=== PATIENT | female | born 1955 | race Caucasian/White ===

== ENCOUNTER → 2020-09-28 14:37 | Outpatient (BNVA) | payer MEDICARE, MEDICAID, SELFPAY | PROVIDERS: Visit Provider Psychiatry & Neurology Psychiatry | DX: F79 Unspecified intellectual disabilities; F25.0 Schizoaffective disorder, bipolar type | CPT/HCPCS: 90792 ==

== ENCOUNTER → 2021-12-11 15:25 | Outpatient (BNVA) | payer MEDICARE, MEDICAID, SELFPAY | PROVIDERS: PCP Physician Assistant Medical; Visit Provider Psychiatry & Neurology Psychiatry | DX: Z79.899 Other long term (current) drug therapy (principal) | CPT/HCPCS: 80053; 80061; 83036; 84443 ==

== ENCOUNTER → 2022-10-31 11:13 | Outpatient (BNVA) | payer MEDICARE, MEDICAID, SELFPAY | PROVIDERS: PCP Physician Assistant Medical; Visit Provider Psychiatry & Neurology Psychiatry | DX: Z79.899 Other long term (current) drug therapy (principal); F25.0 Schizoaffective disorder, bipolar type; F20.9 Schizophrenia, unspecified; F79 Unspecified intellectual disabilities; F17.210 Nicotine dependence, cigarettes, uncomplicated | CPT/HCPCS: 80053; 80061; 83036; 84443; 85025 ==

== ENCOUNTER 2022-11-02 13:30 | Outpatient (CLI) | payer MEDICARE, MEDICAID, SELFPAY ==
--- NOTE | 2022-11-02 13:45 | USCV_ITS ---
Brandi Can Age: 67 Gender: F : 1955 Exam Date: 11/02/2022 14:20 Ordering Phys: Marcela Martini Technologist: Exam Location: [facility] [place] Indication: murmur BP: 140 / 79 HR: 68 Rhythm: Sinus Technical Quality: Adequate MEASUREMENTS (Male / Female) Normal Values 2D ECHO LV Diastolic Diameter PLAX 3.3 cm 4.2 - 5.9 / 3.9 - 5.3 cm LV Systolic Diameter PLAX 2.3 cm IVS Diastolic Thickness 1.3 cm 0.6 - 1.0 / 0.6 - 0.9 cm IVS Systolic Thickness 1.7 cm LVPW Diastolic Thickness 1.6 cm 0.6 - 1.0 / 0.6 - 0.9 cm LVPW Systolic Thickness 1.5 cm LVOT Diameter 2.0 cm LV Ejection Fraction 2D Teich 43.0 % LV Ejection Fraction MOD 2C 63.8 % LV Ejection Fraction 2C AL 63.1 % LA Diameter 3.9 cm Aorta at Sinotubular Diameter 1.9 cm IVC Diameter 1.6 cm M-MODE Aortic Annulus Diameter 3.0 cm LA Ao Ratio MM 1.4 MV E Point Septal Separation 0.6 cm DOPPLER AV Peak Velocity 385.5 cm/s MV Area PHT 2.4 cm squared Mitral E to A Ratio 1.0 MV E' Velocity 77.5 cm/s Mitral E to MV E' Ratio 24.1 Mitral E to LV E' Lateral Ratio 18.9 Mitral E to LV E' Septal Ratio 33.4 TR Peak Velocity 331.0 cm/s TR Peak Gradient 43.8 mmHg TV Peak E Velocity 139.0 cm/s Right Atrial Pressure 3.0 mmHg Pulmonary Artery Systolic Pressu 46.8 mmHg RV Acceleration Time 0.1 s FINDINGS Left Ventricle Normal left ventricular size and systolic function, EF 63 %. Mild to moderate concentric left ventricular hypertrophy.no regional wall motion abnormalities. Grade II/IV diastolic dysfunction, moderately elevated filling pressures. Right Ventricle The right ventricle is normal in size and function. Right Atrium The right atrium is normal in size. Left Atrium Mildly increased left atrial size. Mitral Valve Thickened mitral valve. Moderate mitral annular calcification. Aortic Valve The peak velocity aortic valve 4.62 m/s with a peak gradient of 85 and a mean gradient of 46 mmHg The aortic valve area was calculated to be 0.75 cm squared with an index of 0.45 Tricuspid Valve Trace tricuspid valve regurgitation. Pulmonic Valve Thickened pulmonic valve. Pericardium No pericardial effusion. Aorta Normal ascending aorta dimension. IVC Normal inferior vena cava. CONCLUSIONS Severe aortic valve stenosis with a valve area of 0.75 cm squared with a valve index of 0.45 The peak velocity aortic valve 4.62 m/s with a peak gradient of 85 and a mean gradient of 46 mmHg Normal left ventricular size and systolic function, EF 63 %. Mild to moderate concentric left ventricular hypertrophy. No regional wall motion abnormalities. Mildly increased left atrial size. Thickened mitral valve. Moderate mitral annular calcification. Trace tricuspid valve regurgitation. Mild pulmonary hypertension with an estimated pulmonary artery peak systolic pressure of 47 mmHg. There is no pericardial effusion. There are no intracardiac masses. No similar previous studies are available for comparison Dr Clinton Ling MD FAC (Electronically Signed) Final Date: 03 November 2022 08:25 S
== END 2022-11-02 13:31 | disposition home or self-care (01) ==
PROVIDERS: Visit Provider Nurse Practitioner Family
DX: R01.1 Cardiac murmur, unspecified (principal); I08.1 Rheumatic disorders of both mitral and tricuspid valves; I27.20 Pulmonary hypertension, unspecified
CPT/HCPCS: 93306

== ENCOUNTER 2022-11-17 09:14 | Emergency (ER) | payer MEDICARE, MEDICAID, SELFPAY ==
[2022-11-17 09:17] VITALS: BP 93/73; PULSE 84; RESP 14; TEMP 37.1; O2SAT 90; BMI 35.9
--- NOTE | 2022-11-17 09:25 | XRR_ITS ---
PROCEDURE INFORMATION: Exam: XR Lumbosacral Spine Exam date and time: 11/17/2022 9:38 AM Age: 67 years old Clinical indication: Low back pain; Patient HX: Low back and neck pain. PT reports that she was lifting a laundry basket on 11/13/22 when the pain began. - TECHNIQUE: Imaging protocol: Radiologic exam of the lumbosacral spine. Views: 2 or 3 views. COMPARISON: No relevant prior studies available. FINDINGS: Bones/joints: The lumbar spine maintains a normal lordotic curvature. No spondylolisthesis identified. Approximately 25-50% height loss of the L5 vertebral body. No comparison available. The intervertebral discs maintain normal height. Mild multilevel facet arthropathy. Soft tissues: Unremarkable. XR/XR lumbar spine 2-3V* [id number] IMPRESSION: Approximately 25-50% height loss of the L5 vertebral body. No comparison available. Correlate with any focal pain in this region. Consider MRI for further evaluation.
--- NOTE | 2022-11-17 09:25 | XRR_ITS ---
PROCEDURE INFORMATION: Exam: XR Cervical Spine Exam date and time: 11/17/2022 9:38 AM Age: 67 years old Clinical indication: Patient HX: Low back and neck pain. PT reports that she was lifting a laundry basket on 11/13/22 when the pain began. - TECHNIQUE: Imaging protocol: Radiologic exam of the cervical spine. Views: 2 or 3 views. COMPARISON: No relevant prior studies available. FINDINGS: Bones/joints: The cervical spine maintains a normal lordotic curvature. No spondylolisthesis identified. C1 and C2 maintain normal alignment. The base of the odontoid is unremarkable. The vertebral bodies maintain normal height. Mild multilevel loss of intervertebral disc height with endplate degenerative changes in the mid to lower cervical spine. Mild multilevel facet arthropathy. Soft tissues: Unremarkable. XR/XR cervical spine 3V* [id number] IMPRESSION: 1. No vertebral body height loss or traumatic malalignment identified. 2. Mild multilevel degenerative changes.
--- NOTE | 2022-11-17 09:34 | W.ED.BACK ---
HPI - Back Pain/Injury General: Chief Complaint: Back Pain/Injury Stated Complaint: NECK AND BACK PAIN Time Seen by Provider: 11/17/22 09:21 History of Present Illness: Patient presents to the ER via EMS with complaints of low back pain and neck pain. Patient states several days ago she she was lifting a laundry basket and reports when this is when the pain began. Patient reports pain is 8 out of 10 but she is sitting in no acute distress comfortably appearing talking in complete sentences. MD elicited complaint: back pain and back injury Pertinent past history: recent trauma Onset (ago): day(s) (Several days ago) Timing: constant Severity: moderate Quality: burning and aching Location: lumbar spine Exacerbating factors: movement Relieving factors: none Context: while lifting Associated symptoms: Reports nausea; Deny abdominal pain, chills, dysuria or fever(s) Work related injury: No Review of Systems General: Reports: 10 or more systems reviewed and unremarkable except in HPI and below Const: Denies: fever(s) or chills Eyes: Denies: change in vision ENMT: Denies: throat pain or odynophagia Card: Denies: chest pain, palpitations or irregular heart rhythm Resp: Denies: dyspnea, productive cough or non-productive cough GI: Reports: nausea; Denies: abdominal pain : Denies: flank pain or dysuria Musc: Reports: neck pain and back pain Skin/Breast: Denies: rash or pruritus Neuro: Denies: headache(s), numbness in extremities or weakness in extremities Psych: Denies: anxiety, depression or mood swings Endo: Denies: polyuria or polydipsia Russell/Lymph: Denies: easy bruising or easy bleeding All/Imm: Denies: urticaria or throat swelling PFSH ED PFSH: Medical History Intellectual disability Mood disorder Psychiatric care Schizophrenia Surgical History S/P cholecystectomy Family History Brother CAD (coronary artery disease) Myocardial infarction FH: CABG (coronary artery bypass surgery) Denies family history of Diabetes Stroke Social History Smoking and tobacco status: current every day smoker Alcohol intake: never Caregiver/support person: Yes Lives independently: No Physical Exam Const: COMMON NORMALS: no acute distress, average body habitus, patient oriented x3, no limitations, healthy appearing, alert and well nourished HENMT: COMMON NORMALS: normocephalic, atraumatic, hearing grossly normal bilaterally, external ears normal, Normal external nose present and moist oral mucous membranes HEAD & SCALP: normocephalic and atraumatic NOSE: Normal external nose present EXTERNAL EAR: Yes external ears normal Eye: COMMON NORMALS: Equal, round and reactive pupils present, EOMs intact bilaterally, conjunctivae normal and no scleral icterus CONJUNCTIVA: Yes conjunctivae normal PUPIL: Yes Equal, round and reactive pupils present Neck/C-Spine: COMMON NORMALS: full ROM, no lymphadenopathy, supple, no meningeal signs and no JVD Lymph: LYMPHATIC: no lymphadenopathy noted Chest: COMMONS NORMALS: normal inspection of the chest and normal palpation of entire chest wall Resp: COMMON NORMALS: normal respiratory effort, No retractions, No use of accessory muscles and clear to auscultation bilaterally AUSCULTATION: clear to auscultation bilaterally Cardio: COMMON NORMALS: no JVD, regular rate, regular rhythm, S1 normal heart sound present and S2 normal heart sound present RATE: regular rate RHYTHM: regular rhythm HEART SOUNDS: S1 normal heart sound present and S2 normal heart sound present GI: COMMON NORMALS: Normal to inspection, nondistended, normoactive bowel sounds present, Soft to palpation, non-tender, No hepatosplenomegaly present and no masses PALPATION: Yes Soft to palpation and Yes No hepatosplenomegaly present : COMMON NORMALS: Yes no CVA tenderness BLADDER/KIDNEY EXAM: Yes no CVA tenderness Back/Pelvis: COMMON NORMALS: no CVA tenderness, thoracic and lumbar spine normal to inspection and no thoracic nor lumbar tenderness Extremity: NARRATIVE EXTREMITY EXAM: Trace bilateral lower extremity pitting edema Neuro: COMMON NORMALS: patient oriented x3 SENSORIUM/ORIENTATION: Yes alert MENINGEAL SIGNS: Yes no meningeal signs Course Vital Signs: Vital signs: Vital Signs Temperature 98.7 F 11/17/22 09:17 Pulse Rate 79 11/17/22 09:37 Respiratory Rate 14 11/17/22 09:37 Blood Pressure 113/43 11/17/22 09:37 Pulse Oximetry 94 11/17/22 09:37 Oxygen Delivery Me thod Room Air 11/17/22 09:37 MDM - Back Pain/Injury Medical Decision Making Patient presents to the ER with complaints of neck and back pain since lifting a laundry basket approximately 4 days ago. Patient appears in no acute distress during her entire stay in the ER. X-rays were obtained of her cervical and lumbar spine. Cervical spine showed multilevel degenerative changes otherwise benign, images of her lumbar spine showed possible L5 vertebral body compression fracture with approximate 25 to 50% height of loss, no comparison views. Patient does state with palpation of this area she is more tender than other areas of her back however clinically she does not appear to be very tender at all. These findings were explained to the patient as well as the possible need for follow-up and/or intervention. Patient will be discharged home on pain medicine and is to follow-up with her family doctor within the next week. Differential Diagnosis Likely lumbar radiculopathy and strain of lumbar region; Unlikely sciatica, renal colic, pyelonephritis, thoracic back pain, AAA or discitis Medical Records I reviewed the patient's medical records. Labs I reviewed the patient's lab results. Radiology Impressions Cervical Spine X-Ray 11/17/22 09:25 IMPRESSION: 1. No vertebral body height loss or traumatic malalignment identified. 2. Mild multilevel degenerative changes. Lumbar Spine X-Ray 11/17/22 09:25 IMPRESSION: Approximately 25-50% height loss of the L5 vertebral body. No comparison available. Correlate with any focal pain in this region. Consider MRI for further evaluation. Discharge Plan Discharge Patient Disposition: Home Clinical Impression: Closed compression fracture of L5 vertebra, Low back pain, Acute neck pain Condition: Stable Prescriptions: New meloxicam 15 mg tablet 15 mg PO DAILY Qty: 14 0RF No Action oxybutynin chloride 10 mg tablet extended release 24hr 10 mg PO DAILY omeprazole 40 mg capsule,delayed release(DR/EC) 40 mg PO DAILY atorvastatin 40 mg tablet 40 mg PO DAILY multivitamin Tablet 1 tab PO DAILY quetiapine 100 mg tablet 100 mg PO BEDTIME Discharge Orders: Discharge ED (Routine); Ordered 11/17/22 Ordered By: George Gonzales Discharge Activity: Increase activity as tolerated Patient Instructions: Pain Management, Vertebral Compression Fracture (ED), Back Pain (ED) Coding Level of Care Code ED Motorized Squad Lieutenant for Arlen Marion
[2022-11-17 09:37] VITALS: BP 113/43; PULSE 79; RESP 14; O2SAT 94
[2022-11-17] MEDS: ketorolac 60 mg/2 mL INJ IM (12:23)
--- NOTE | 2022-11-21 15:31 | DCPLANNER ---
TCM called patient due to no primary care physician - no answer at this time.
== END 2022-11-17 12:33 | disposition home or self-care (01) ==
PROVIDERS: Emergency Provider Emergency Medicine
DX: S32.050A Wedge compression fracture of fifth lumbar vertebra, initial encounter for closed fracture (principal); M54.2 Cervicalgia; F17.210 Nicotine dependence, cigarettes, uncomplicated; X50.0XXA Overexertion from strenuous movement or load, initial encounter
CPT/HCPCS: 72040; 72100; 96372; 99284; J1885

== ENCOUNTER → 2023-01-15 14:21 | Outpatient (BNVA) | payer MEDICARE, MEDICAID, SELFPAY | PROVIDERS: PCP Family Medicine; Visit Provider Nurse Practitioner Family | DX: M25.561 Pain in right knee (principal) | CPT/HCPCS: 73562 ==

== ENCOUNTER → 2023-11-07 14:54 | Outpatient (BNVA) | payer MEDICARE, MEDICAID, SELFPAY | PROVIDERS: PCP Family Medicine; Visit Provider Orthopaedic Surgery | DX: M54.9 Dorsalgia, unspecified (principal); S32.040A Wedge compression fracture of fourth lumbar vertebra, initial encounter for closed fracture; X58.XXXA Exposure to other specified factors, initial encounter | CPT/HCPCS: 72110; 99204 ==

== ENCOUNTER 2023-11-25 15:44 | Outpatient (CLI) | payer MEDICARE, MEDICAID, SELFPAY ==
--- NOTE | 2023-11-25 16:00 | MR_ITS ---
WS: [id number] MRI LUMBAR SPINE NONCONTRAST TECHNIQUE: Sagittal T1, T2 and STIR imaging. Axial T1 and T2 imaging. CLINICAL INFORMATION: Back pain COMPARISON: None. FINDINGS: Mild lumbar curve. Again seen is the compression fracture L4 vertebral body with 85% loss vertebral b anamika height more prominent centrally with near vertebral plana configuration. Preservation of the post erior superior cortex with retropulsion. This results in moderate to severe central canal stenosis at the L3-4 disc space. Minimal residual edema in the L4 vertebral body consistent with late subacute t o chronic compression. L1-L2: Mild annular bulging. Mild facet arthropathy. Mild LEFT foraminal narrowing. Spinal canal is p atent. L2-L3: Mild annular bulging. Slight effacement of the ventral thecal sac. Moderate facet arthropathy. Mild LEFT greater than RIGHT foraminal narrowing. L3-L4: Mild disc bulging in combination with retropulsion L4 results in moderate to severe central ca nal stenosis. Impingement of the traversing L4 nerve roots at this level. Moderate RIGHT and mild LEF T foraminal narrowing. Moderate facet arthropathy. L4-L5: Tiny central protrusion with slight effacement of the ventral thecal sac. Slight encroachment on traversing L5 nerve roots. Moderate facet arthropathy. Mild RIGHT and no significant LEFT foramina l narrowing. L5-S1: Mild annular bulging. Spinal canal and foramina are patent. Mild facet arthropathy. Small RIGHT renal cyst. Large cystic signal structure in the pelvis with lobulation may represent the urinary bladder versus pelvic mass. This is incompletely evaluated and recommend CT abdomen pelvis in further evaluation. In addition, adjacent similar-appearing cystic lesion in the LEFT adnexa measuring 6.5 cm. Recommend further evaluation with contrast-enhanced CT abdomen pelvis. IMPRESSION: 1. Large cystic pelvic lesion versus distended bladder in the pelvis with lobulation partially visua lized. In addition, adjacent cystic lesion measuring 6.5 cm in the LEFT adnexa is indeterminate. Jak mmend further evaluation of the structures with contrast-enhanced CT abdomen pelvis. No prior compari sons available. 2. Compression fracture L4 vertebral body with retropulsion of the posterior superior cortex results in moderate to severe central canal stenosis described above. Near vertebral plana configuration inv olving the central L4 vertebral body. 3. Mild chronic compression supreme plate L5. 4. Moderate RIGHT L3-4 and mild RIGHT L4-5 foraminal narrowing.
== END 2023-11-25 15:45 | disposition home or self-care (01) ==
LOC: RAD 15:46
PROVIDERS: PCP Family Medicine; Visit Provider Orthopaedic Surgery
DX: M54.50 Low back pain, unspecified (principal); M48.56XA Collapsed vertebra, not elsewhere classified, lumbar region, initial encounter for fracture; M48.061 Spinal stenosis, lumbar region without neurogenic claudication; X58.XXXA Exposure to other specified factors, initial encounter
CPT/HCPCS: 72148

== ENCOUNTER → 2024-01-02 12:53 | Outpatient (BNVA) | payer MEDICARE, MEDICAID, OTHER, SELFPAY | PROVIDERS: PCP Family Medicine; Visit Provider Nurse Practitioner | DX: Z79.899 Other long term (current) drug therapy (principal); F20.9 Schizophrenia, unspecified; F79 Unspecified intellectual disabilities | CPT/HCPCS: 80061; 83036 ==

== ENCOUNTER → 2024-01-22 12:30 | Outpatient (BNVA) | payer MEDICARE, OTHER, SELFPAY | PROVIDERS: PCP Family Medicine; Visit Provider Internal Medicine Cardiovascular Disease | DX: R07.9 Chest pain, unspecified (principal); I35.0 Nonrheumatic aortic (valve) stenosis; F17.200 Nicotine dependence, unspecified, uncomplicated; F79 Unspecified intellectual disabilities; I44.0 Atrioventricular block, first degree | CPT/HCPCS: 93005; 99214 ==

== ENCOUNTER 2024-02-10 07:16 | Outpatient (CLI) | payer MEDICARE, MEDICAID, SELFPAY ==
[2024-02-10] VITALS (15 sets, daily range): BP systolic 88–157; BP diastolic 54–99; PULSE 57–68; RESP 15–22; TEMP 36.8; O2SAT 92–100; BMI 20.9
--- NOTE | 2024-02-10 07:30 | XACV_ITS ---
Exam Room: 2 Ht: 155 cm Wt: 50 kg BSA: 1.47 m2 Gender: Female : 1955 Any Known Allergies: No known allergies Exam Priority: Routine Procedure(s): Procedure Description: Diagnostic procedure Diagnostic Cath Status: Elective Diagnostic Findings * Indication: Severe aortic stenosis. * No signfiicant disease noted in the Left Main, Right, or Circumflex coronary arteries. Ostial LAD has 20 to 30% stenosis. * Coronary angiography shows right dominance. Conclusions 1. No signfiicant disease noted in the Left Main, Right, or Circumflex coronary arteries. Ostial LAD has 20 to 30% stenosis. 2. Severe aortic stenosis. Mean gradient across aortic valve of 56mmHg. Recommendations * Will refer for TAVR. * Outpatient cardiology follow up in 2-4 weeks. Pressures Phase:Rest AO : 143 / 68 ( 95 ) @ 10:08:00 AM 151 / 71 ( 102 ) @ 10:12:00 AM 157 / 71 ( 102 ) @ 10:12:00 AM LV : 202 / -6 / 25 @ 10:12:00 AM 203 / -6 / 26 @ 10:12:00 AM Valves Phase:DefaultPhase AV : 49.0 @ 9:20:26 AM AV Mean Gradient: 56.0 @ 9:20:26 AM 56.0 @ 9:20:26 AM Clinical Evaluation EBL: 5mL-10mL Procedural Details Procedure Consent Obtained. Pre-Procedure Time Out. Identified patient by full name and date of as verbalized by the patient/guarantor. Does the consent match the physician's order: Yes. Accurate & Complete Informed Consent: Yes. Inpatient/Outpatient History & Physical on Chart: Yes. If H&P is completed, is and addenduem needed: No; If yes, is the addendum complete: N/A. Visualize and Verify Site with Patient/Guarantor: N/A. Relevant Radiology Images available: Yes. Pre-op teaching completed and patient verbalized understanding. The risks, benefits, and alternatives of sedation and/or procedure were discussed by physician. The patient agrees to continue. Procedure started. Baseline sample Acquired. HR: 58 BPM. CSHA Clinical Fraility Score: 4: Vulnerable. Hat Binder Indications: Valvular Disease. Chest Pain Symptom Assessment: Non-anginal Chest Pain. Correct patient, site and procedure confirmed by cath team. PERRLA. Strong, equal hand jet worker bilaterally. Lungs clear x 5 lobes. IV Site on Arrival: 20 gauge in the left anticubital. IV Fluids: 0.9% NaCl at KVO. 0 mL infused prior to outside laborer. Pre Procedural Pulses: bilateral dorsalis pedis was 3+. Pre Procedural Pulses: bilateral posterior tibial was 1+. Pre Procedural Pulses: bilateral radial was 2+. Oxygen started at 2liters/min via nasal canula. right groin was prepped with chloroprep then draped in the usual sterile fashion. right radial was prepped with chloroprep then draped in the usual sterile fashion. Baseline sample Acquired. HR: 58 BPM. Physician arrived. A 20 gauge IV was started in the right anticubital using aseptic technique. Physician scrubbed in. Immediate Pre-Procedure Time Out. Correct Patient: Yes; Correct Procedure: Yes; Correct Site: Yes; Correct Patient Position: Yes; Correct Supplies: Yes; Dried Flammable Prep: Yes; Blood Products Available: N/A;. Lidocaine 1% infiltrated to the right radial. Arterial access obtained. A 5 ukrainian TIG catheter in over wire. Multiple views taken of left coronary artery. Catheter redirected to the RCA. EDP Sample taken: LV 202/-7,25; HR: 66 BPM; SpO2: 100%. Pullback taken: LV 203/-7,26; AO 151/71(102); Mean: 56mmHg, Peak to Peak: 49mmHg, SEP: 22sec/min; HR: 66 BPM; SpO2: 100%. Multiple views taken of right coronary artery. Catheter removed over the exchange wire. A TR Band was successful obtaining hemostatsis at the Right Radial artery insertion site. Post Procedure: Pulses reassessed and unchanged. PERRLA. Strong, equal hand jet worker bilaterally. No VTE prophylaxis required. Medication's Wasted: Lidocaine 1% = 17 mL. Medication's Wasted: Nitro = 49.9 mg. Medication's Wasted: Other = Fentanyl 50mcg Versed 1 mg. Medication's Wasted: Heparin = 3500 units. Total IV fluids: 27 mL. Vital chart was stopped. Post-op diagnosis: Non-obstructive CAD, Severe Aortic Stenosis. Complications: None. Estimated blood loss: 5mL-10mL. Responsiveness - Normal response to verbal stimuli; alert and oriented, PERRLA. Airway - Unaffected, no intervention required; spontaneous ventilation. Circulation: W/N/L, pulses unchanged. Nausea/Vomiting: No. Procedure completed. Patient transferred by stretcher to CPRU. Access Site Site: Right Radial artery Sheath Size: 6 Fr Hemostasis Method: TR Band Hemostasis Success: Successful Procedure Medications Start: 8:56 AM Stop: 8:56 AM Medication: Versed Amount: 1 mg Route: I.V. Start: 8:56 AM Stop: 8:56 AM Medication: Fentanyl Amount: 50 mcg Route: I.V. Start: 9:06 AM Stop: 9:06 AM Medication: Nitrogylcerin Amount: 100 mcg Route: I.A. Start: 9:08 AM Stop: 9:08 AM Medication: Heparin Amount: 2500 units Route: I.V. I, the attending physician, have reviewed and verified all procedure medications. Yes, all medications given per verbal order History/Risk Factors Hypertension: No Dyslipidemia: No Peripheral Arterial Disease (PAD): No Myocardial Infarction (ME): No Obesity: No Renal Disease: No Tobacco Use: Current/Recent(w/in 1 year) Prior Interventions PCI: No CABG: No Valve Surgery: No Report Signatures Finalized by Gregory Mckeon MD on 02/24/2024 11:01 AM
[2024-02-10 07:54] LABS: Basophils # 0.1 10^3/uL (0.0-0.1); Basophils % 1.5 %; Eosinophils # 0.6 10^3/uL (0.0-0.8); Eosinophils % 8.4 %; Hematocrit 27.8 % (36-47); Lymphocytes # 2.6 10^3/uL (0.8-4.8); Mean Corpuscular HGB Conc 31.7 g/dL (30-55); Mean Corpuscular Hemoglobin 24.7 pg (27-33); Mean Corpuscular Volume 78.1 fl (85-98); Mean Platelet Volume 10.8 fL (7.4-10.4); Monocytes # 0.9 10^3/uL (0.2-0.9); Monocytes % 12.1 %; Neutrophils # 3.16 10^3/uL (1.8-7.7); Neutrophils % 42.6 %; Nucleated Red Blood Cells % 0 %; Platelet Count 459 10^3/cmm (157-399); Red Blood Count 3.56 10^6/uL (3.85-5.65); Red Cell Distribution Width 14.6 % (12.1-15.1); White Blood Count 7.42 10^3/uL (3.29-11.43)
--- NOTE | 2024-02-10 08:10 | W.PM.OPSUD ---
Surgery/Procedure H&P Update DATE OF PROCEDURE: February 10, 2024 DATE H&P PERFORMED: 01/22/24 H&P UPDATE INFORMATION: I have reviewed H&P completed within last 30 days, I have examined patient prior to procedure and No changes to prior documentation PREOP DIAGNOSIS: Severe aortic stenosis PRIMARY INDICATION FOR PROCEDURE: Severe aortic stenosis PLANNED PROCEDURE: Operation Date: 02/10/24 08:30 Proposed Procedures p Cardiac Catheterization w/wo LV & Coros 23581, I35.0(Left) - Gregory Mckeon M.D Possible percutaneous coronary intervention PATIENT REASSESSED PRIOR TO SEDATION, WITH NO CHANGE NOTED: Yes PHYSICAL EXAM: alert, oriented x 3, clear to auscultation bilaterally and regular rate & rhythm AIRWAY EVAL/ANESTHESIA PLAN: normal airway, ASA III, Local Anesthesia, Risks, benefits & alternatives of sedation and/or procedure discussed and Patient agrees to continue as planned ADDITIONAL INFORMATION: Moderate sedation
[2024-02-10] MEDS: aspirin 325 mg Tablet PO (08:12)
[2024-02-10] MEDS: diphenhydrAMINE 50 mg Capsule PO (08:12)
[2024-02-10 08:13] LABS: Anion Gap 13.1 (5-19); Blood Urea Nitrogen 19 mg/dL (8-23); Calcium 9.1 mg/dL (8.5-10.5); Carbon Dioxide 27 mmol/L (22-29); Chloride 96 mmol/L (98-107); Glomerular Filtration Rate 98.8 mL/min (90-130); Glucose 96 mg/dL (65-115); Osmolality Calculated 276 mOsm/kg (285-295); Potassium 4.1 mmol/L (3.5-5.1); Sodium 132 mmol/L (136-145)
--- NOTE | 2024-02-10 09:23 | SUR.PHASEII ---
POST CATH NOTE Received patient from laborer mine. Status post left cardiac cath. Condition- stable. Radial access site- hemostatic. See pcs for assessment details. Vitals stable. Call light in reach. No pain reported at this time. IV- 0.9% NS at 100 ml/hr post cath until discharge as verbal order from Dr Mckeon. Informed to call for needs.
--- NOTE | 2024-02-10 09:24 | SUR.PHASEII ---
IV FLUIDS 0.9% NS AT 100 ML POST CATH PER VERBAL ORDER FROM DR ASHER.
== END 2024-02-10 13:16 | disposition home or self-care (01) ==
PROVIDERS: PCP Family Medicine; Visit Provider Internal Medicine
DX: I35.0 Nonrheumatic aortic (valve) stenosis (principal); Z82.49 Family history of ischemic heart disease and other diseases of the circulatory system; F17.200 Nicotine dependence, unspecified, uncomplicated; F79 Unspecified intellectual disabilities
CPT/HCPCS: 36415; 80048; 85025; 93458; 96374; 96375; 99152; 99153; C1769; C1887; C1894; J1644; J2250; J3010; J3490; J7030; Q0163; Q9967

== ENCOUNTER → 2024-03-19 09:29 | Outpatient (BNVA) | payer MEDICARE, MEDICAID, SELFPAY | PROVIDERS: PCP Family Medicine; Visit Provider Nurse Practitioner Family | DX: I35.0 Nonrheumatic aortic (valve) stenosis (principal); Z72.0 Tobacco use | CPT/HCPCS: 99213 ==

== ENCOUNTER → 2024-06-16 09:15 | Outpatient (BNVA) | payer MEDICARE, MEDICAID, SELFPAY | PROVIDERS: PCP Family Medicine; Referring Provider Family Medicine; Visit Provider Student in an Organized Health Care Education/Training Program | DX: K64.9 Unspecified hemorrhoids (principal) | CPT/HCPCS: 99204 ==

== ENCOUNTER → 2024-11-24 15:13 | Outpatient (BNVA) | payer MEDICARE, MEDICAID, SELFPAY | PROVIDERS: PCP Family Medicine; Referring Provider Family Medicine; Visit Provider Psychiatry & Neurology Neurology | DX: G56.03 Carpal tunnel syndrome, bilateral upper limbs (principal) | CPT/HCPCS: 95911 ==

== ENCOUNTER → 2025-01-21 15:46 | Outpatient (BNVA) | payer MEDICARE, SELFPAY | DX: F20.9 Schizophrenia, unspecified (principal); R58 Hemorrhage, not elsewhere classified; I35.0 Nonrheumatic aortic (valve) stenosis; Z79.899 Other long term (current) drug therapy | CPT/HCPCS: 80053; 80061; 83036; 84443; 85025 ==

== ENCOUNTER → 2025-02-02 10:08 | Outpatient (BNVA) | payer MEDICARE, MEDICAID, SELFPAY ==
[2025-01-28 13:39] VITALS: BP 137/62; BMI 19.5
== END ==
PROVIDERS: Visit Provider Orthopaedic Surgery
DX: G56.03 Carpal tunnel syndrome, bilateral upper limbs (principal)
CPT/HCPCS: 99204

== ENCOUNTER 2025-02-10 06:57 | Day surgery (SDC) | payer MEDICARE, MEDICAID, SELFPAY ==
[2025-01-28 13:39] VITALS: BP 137/62; BMI 19.5
[2025-02-10] VITALS (10 sets, daily range): BP systolic 99–124; BP diastolic 59–84; PULSE 73–83; RESP 10–20; TEMP 36.1–36.8; O2SAT 90–100
--- NOTE | 2025-02-10 07:28 | ANES.PREANE2 ---
Pre-Anesthetic Assessment Height/Weight: Height 1.55 m Weight 46.72 kg Temp Pulse Resp BP Pulse Ox O2 Del Method 98.2 F 83 18 108/61 96 Room Air 02/10/25 07:10 02/10/25 07:10 02/10/25 07:10 02/10/25 07:10 02/10/25 07:10 02/10/25 07:10 Operation Date: 02/10/25 09:00 Proposed Procedures p RIGHT Carpal Tunnel Release(Right) - Yo Francisco MD Familial anesthetic complications: none Was Beta Ash taken within 24 hours: N/A Was Clonidine taken within 24 hours: N/A Last intake: Intake Last Liquid Date 02/10/25 Last Liquid Time 17:00 Last Solid Date 02/09/25 Last Solid Time 13:00 Social No alcohol and No tobacco Exam alert, oriented x 3, clear to auscultation bilaterally and regular rate & rhythm Airway Mallampati: Class II Dentition: other (no teeth) CV/HEM S/p Aortiv valve replacement CONCLUSIONS Severe aortic valve stenosis with a valve area of 0.75 cm squared with a valve index of 0.45 The peak velocity aortic valve 4.62 m/s with a peak gradient of 85 and a mean gradient of 46 mmHg Normal left ventricular size and systolic function, EF 63 %. Mild to moderate concentric left ventricular hypertrophy. No regional wall motion abnormalities. Mildly increased left atrial size. Thickened mitral valve. Moderate mitral annular calcification. Trace tricuspid valve regurgitation. Mild pulmonary hypertension with an estimated pulmonary artery peak systolic pressure of 47 mmHg. There is no pericardial effusion. There are no intracardiac masses. No similar previous studies are available for comparison GI Gastroesophageal Reflux Disease Anesthetic Plan ASA status: 4 Anesthesia: MAC Risk of > 500 ml blood loss (7ml/kg in children): No Medications/Allergies Home Medications ?Medication ?Instructions ?Recorded ?Confirmed ?Last Taken ?Type pantoprazole 40 mg tablet,delayed 40 mg PO DAILY 01/15/23 02/10/25 02/09/25 History release oxybutynin chloride 15 mg 15 mg PO DAILY 01/02/24 02/10/25 02/09/25 History tablet,extended release 24 hr quetiapine 100 mg tablet 100 mg PO BEDTIME 30 days #30 tabs 05/04/24 02/10/25 02/09/25 Rx escitalopram oxalate 5 mg tablet 5 mg PO DAILY #30 tabs 01/21/25 02/10/25 02/09/25 Rx (Lexapro) Allergies Allergy/AdvReac Type Severity Reaction Status Date / Time No Known Allergies Allergy Verified 02/02/25 10:24 Current Medications Generic Name Dose Route Start Last Admin Trade Name Roseline PRN Reason Stop Dose Admin Sodium Chloride 1,000 mls @ 30 mls/hr 02/10/25 07:15 02/10/25 07:27 Sodium Chloride 0.9% IV 02/11/25 07:14 30 mls/hr .Q24H HOMAR Administration PFSH Anesthesia Medical History (Updated 02/02/25 @ 12:02 by Yo Francisco MD) On combination antipsychotic drug therapy Psychiatric care Schizophrenia Mood disorder Intellectual disability Surgical History S/P cholecystectomy Family History Brother CAD (coronary artery disease) Myocardial infarction FH: CABG (coronary artery bypass surgery) Denies family history of Diabetes Stroke Social History Smoking and tobacco/nicotine status: current every day tobacco/nicotine user cigarettes Packs smoked per day: 2 Years cigarettes smoked: 45 Quit status (tobacco/nicotine): considering quitting Second hand smoke exposure: Yes Alcohol intake: never Substance/Drug Use: never Adopted: Yes Caregiver/support person: Yes Lives independently: No Household members: none Housing: Apartment Marital status: / Number of children: 3 Number of grandchildren: 6 Highest education level completed: Some College, No Degree service: No Current occupational status: retired Pets and animals: No Leisure activites: other Leisure activities details: watch TV, eat ice cream, go outside Sexually active: No Do you think of yourself as: Straight/Heterosexual Current gender identity: Female Noemi/Episcopalian: Confucianism Special noemi needs: No Agree to transfusion: Yes Data Anesthesia Cardiac Studies: Echocardiogram 11/02/22
[2025-02-10] MEDS: midazolam 1 mg/mL INJ 2 mL 2 MG IVP (07:36)
--- NOTE | 2025-02-10 08:29 | W.PM.OPSUD ---
Surgery/Procedure H&P Update DATE OF PROCEDURE: February 10, 2025 DATE H&P PERFORMED: 02/02/25 H&P UPDATE INFORMATION: I have reviewed H&P completed within last 30 days, I have examined patient prior to procedure and No changes to prior documentation PREOP DIAGNOSIS: Right carpal tunnel PLANNED PROCEDURE: Operation Date: 02/10/25 09:00 Proposed Procedures p RIGHT Carpal Tunnel Release(Right) - Yo Francisco MD
[2025-02-10] MEDS: ceFAZolin 2,000 mg SDV 2000 MG IVP (08:35)
[2025-02-10] MEDS: BUPivacaine 0.5% INJ 10 mL INJECTION (09:02)
--- NOTE | 2025-02-10 09:22 | P.OP_ITS ---
Operative Report Date of procedure: February 10, 2025 Surgeon: Yo Francisco MD Procedure: Preoperative diagnosis: Right carpal tunnel syndrome Postoperative diagnosis: Same Procedure: Right carpal tunnel release Surgeon: Yo Francisco MD Anesthesia: IV sedation with local anesthetic EBL: None Indications: Brandi is a 69-year-old white female who was seen in the orthopedic clinics for bilateral debilitating pain numbness and tingling. She previously had nerve conduction test done by her primary care provider demonstrated nerve compression of the median nerve at the carpal tunnel region bilateral hands. Patient indicated that right hand is worse than left. Therefore at this time after clinical evaluation confirmed carpal tunnel syndrome. She was offered a right carpal tunnel release at this time. All risk benefits treatment alternatives discussed and the patient and her power of commercial real estate attorney were agreeable to this at this time. Procedure: After obtaining written consent patient was taken to the operating room placed on the upper table supine position IV sedation was administered. Subsequently pneumatic cuffs placed on the proximal right arm. Right arm was prepped and draped usual fashion. After surgical timeout hand was exsanguinated with an Esmarch. Esmarch was then used for the tourniquet. 1% bupivacaine plain was injected into the carpal tunnel region of the right hand totaling approximately 8 cc. Once good anesthetic effect was administered. Longitudinal incision made just ulnar to the mid palmar crease extending from the distal flexion crease on the volar surface of the wrist distally 1-1/2 cm. Sharp dissected gone down the subcutaneous tissue. Sharp dissection taken all the way down to the transverse carpal ligament. Transverse carpal ligament was divided sharply along the course of the skin incision until contents were exposed. Proximal and distal portions of the ligament were released using Metzenbaum scissors and blunt and sharp fashion. Once this was achieved. Wound was closed with 3-0 nylon horizontal mattress suture. Wound was dressed with Xeroform gauze sterile gauze dressing Kerlix wrap and an Chidi wrap for compression. Should be noted at the time of wound closure as marked been removed as the tourniquet. Patient then awakened transferred to cover room stable condition
--- NOTE | 2025-02-10 10:30 | ANE.PACU2 ---
Inpatient post-anesthesia follow up: Airway intact: Yes Vital signs: Temperature 97.9 F Pulse Rate 73 Respiratory Rate 16 Blood Pressure 116/73 Pulse Oximetry 98 Oxygen Delivery Me thod Room Air Oxygen Flow Rate Fraction of Inspir ed Oxygen Hydration adequate: Yes Nausea and vomiting: No Pain level: 1 Mental status: Baseline
== END 2025-02-10 10:30 | disposition home or self-care (01) ==
PROVIDERS: PCP Family Medicine; Visit Provider Orthopaedic Surgery
PROC: (CPT 64721; principal; 2025-02-10 09:00)
DX: G56.01 Carpal tunnel syndrome, right upper limb (principal); K21.9 Gastro-esophageal reflux disease without esophagitis; F20.9 Schizophrenia, unspecified; F17.210 Nicotine dependence, cigarettes, uncomplicated
CPT/HCPCS: 64721; J0690; J2250; J2371; J2704; J3010; J3490; J7030; J9999

== ENCOUNTER 2025-02-10 16:37 | Emergency (ER) | payer MEDICARE, MEDICAID, SELFPAY ==
[2025-01-28 13:39] VITALS: BP 137/62; BMI 19.5
[2025-02-10 16:38] VITALS: BP 127/61; PULSE 67; RESP 16; TEMP 36.3; O2SAT 92
--- OUTSIDE RECORDS SUMMARY | 2025-02-10 16:45 | XMS_ITS | Encounter Summary ---
Author Organization [facility] Address [address] [place] [address] Care Team Providers Care Radiological Engineer Name Role Phone Demetrius Bull DO Primary Care Provider [phone] Reason for Visit * Reason Comments Med Refill Encounter Details Date Type Department Care Team (Late st Contact Info) Description 02/05/2025 Refill [facility] [address] [phone] Demetrius Bull DO [address] [phone] Overactive bladder Social History Tobacco Use Types Packs/Day Years Used Date Smoking Tobacco: Every Day Cigarettes Smokeless Tobacco: Never Alcohol Use Standard Drinks/Week Comments Not Currently 0 (1 standard drink = 0.6 oz pur e alcohol) Financial Resource Strain Answer Date R ecorded How hard is it for you to pa y for the very basics like food, housing, medical care, and heating? Patient declined 08/14/2022 Food Insecurity Answer Date Recorded In the past 12 months, have you worried that your food would run out before you had money to buy more? Patient declined 2022 In the past 12 months, did y ou run out of food and didn't have money to buy more? Patient declined 08/14/2022 Transportation Needs Answer Date Record ed In the past 12 months, has l ack of transportation kept you from medical appointments or from getting medications? Patient declined 08/14/2022 Lack of Transportation (Non-Medical) Not on file 08/14/2022 Feeling Safe Answer Date Recorded Are you in a relationship wi th someone who hurts you emotionally and/or physically? 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 Gender Identity Not on file Sexual Orientation Not on file documented as of this encounter Plan of Treatment Upcoming Encounters Date Type Department Care Team (Late st Contact Info) Description 03/18/2025 1:20 PM CDT Office Visit [facility] [address] [place] [address] [phone] Samanta Garcia FNP [address] [place] [address] [phone] documented as of this encounter Visit Diagnoses Diagnosis Overactive bladder Hypertonicity of bladder documented in this encounter Additional Health Concerns Assessment Noted Time PHQ-9 Depression Total Score: 4 12/09/19 25 11:48 AM CDT documented as of this encounter Care Teams Radiological Engineer Relationship Specialty Start Date End Date Demetrius Bull DO [address] [place] [address] [phone] PCP - General Family Practice 01/31/23 documented as of this encounter
--- OUTSIDE RECORDS SUMMARY | 2025-02-10 16:45 | XMS_ITS | Encounter Summary ---
Author Organization [facility] Address [address] [place] [address] Care Team Providers Care Sample Dye Mixer Name Role Phone Demetrius Bull Primary Care Provider Reason for Visit * Reason Comments Med Refill Encounter Details Date Type Department Care Team (Late st Contact Info) Description 02/08/2025 Refill [facility] Medicine [place] [address] [phone] Samanta Garcia, 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 Gender Identity Not on file Sexual Orientation Not on file documented as of this encounter Miscellaneous Notes * Telephone Encounter - Haley Javier LPN - 02/09/2025 11:38 AM CDT Medication Refill Request Last Fill Date:01/19/2503/09 Recent and Future Visits: Recent Visits Date Type Provider Dept 12/31/24 Office Visit Samanta Garcia [facility] 12/08/24 Office Visit Demetrius Bull, [facility] 11/12/24 Office Visit Samanta Garcia [facility] 09/10/24 Office Visit Samanta Garcia [facility] 09/04/24 Office Visit Demetrius Bull, [facility] 05/22/24 Office Visit Demetrius Bull [facility] 04/27/24 Office Visit Brooklynn Boyd, [facility] 02/25/24 Office Visit Samanta Garcia [facility] 11/26/23 Office Visit Samanta Garcia [facility] 10/24/23 Office Visit Samanta Garcia [facility] Showing recent visits within past 540 days with a meds authorizing provider and meeting all other requirements Future Appointments Date Type Provider Dept 03/18/25 Appointment Samanta Garcia [facility] Showing future appointments within next 365 days with a meds authorizing provider and meeting all other requirements documented in this encounter Plan of Treatment Upcoming Encounters Date Type Department Care Team (Late st Contact Info) Description 03/18/2025 1:20 PM CDT Office Visit [facility] [address] [phone] Samanta Garcia, [facility] [address] [place] [address] [phone] documented as of this encounter Visit Diagnoses Diagnosis Compression fracture of lumbar vertebra, unspecified lumbar vertebral level, sequela Chronic bilateral low back pain without sciatica documented in this encounter Additional Health Concerns Assessment Noted Time PHQ-9 Depression Total Score: 4 12/09/19 25 11:48 AM CDT documented as of this encounter Care Teams Sample Dye Mixer Relationship Specialty Start Date End Date Demetrius Bull DO [address] [place] [address] [phone] PCP - General Family Practice 01/31/23 documented as of this encounter
--- OUTSIDE RECORDS SUMMARY | 2025-02-10 16:45 | XMS_ITS | Encounter Summary ---
Author Organization [facility] Address 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 Sent documents as requested to fax # provided * Telephone Encounter - Butch Trivedi - 02/04/2025 2:56 PM CDT Copied from [facility] #[id number]. Topic: [id number] Call >> Feb 04, 2025 2:52 PM Butch Dill wrote: Caller is requesting to speak with Clinical Care Team. Caller Name: Yaneth- megan equipment services associate Callback Number: [phone] Clinician Type: Other healthcare professional not listed above Call Notes: Yaneth states [facility] is needing an HNP for patients upcoming surgery on 02/10, statestheir fax is [phone] Is this addressing an immediate patient care need? No documented in this encounter Plan of Treatment Upcoming Encounters Date Type Department Care Team (Late st Contact Info) Description 03/18/2025 1:20 PM CDT Office Visit [facility] [address] [place] [phone] Samanta Garcia, SUPERVISOR LUMP ROOM [address] [place] [phone] documented as of this encounter Visit Diagnoses Not on filedocumented in this encounter Additional Health Concerns Assessment Noted Time PHQ-9 Depression Total Score: 4 12/09/19 25 11:48 AM CDT documented as of this encounter Care Teams Supervisor Firearms Relationship Specialty Start Date End Date Demetrius Bull DO [address] [place] [phone] PCP - General Family Practice 01/31/23 documented as of this encounter
--- OUTSIDE RECORDS SUMMARY | 2025-02-10 16:45 | XMS_ITS | Encounter Summary ---
Author Organization [facility] Address [address] [place] [address] Care Team Providers Care Ebd Teacher Name Role Phone Demetrius Bull DO Primary Care Provider [phone] Reason for Visit * Reason Onset Date Comments Primary Care Outreach 02/08/2025 Sent [employer] message to schedule mammogram. If patient calls, please schedule mammogram or transfer call to [facility] [phone] or the [facility] where patient would like to have mammogram. Breast Cancer Screening 02/08/2025 Sent [employer] message to schedule mammogram. If patient calls, please schedule mammogram or transfer call to [facility] [phone] or the [facility] where patient would like to have mammogram. Encounter Details Date Type Department Care Team (Late st Contact Info) Description 02/08/2025 Patient Outreach [facility] [address] [place] [address] Demetrius Bull DO [address] [place] [phone] Primary Care Outreach (Sent [employer] message to schedule mammogram. If patient calls, please schedule mammogram or transfer call to [facility] [phone] or the [facility] where patient would like to have mammogram. ); Breast Cancer Screening (Sent [employer] message to schedule mammogram. If patient calls, please schedule mammogram or transfer call to [facility] [phone] or the [facility] where patient would like to have mammogram. 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 Outreach has been initiated. Sent [employer] message documented in this encounter Plan of Treatment Upcoming Encounters Date Type Department Care Team (Late st Contact Info) Description 03/18/2025 1:20 PM CDT Office Visit [facility] [address] [place] [phone] Samanta Garcia FNP [address] [place] [address] [phone] documented as of this encounter Visit Diagnoses Not on filedocumented in this encounter Additional Health Concerns Assessment Noted Time PHQ-9 Depression Total Score: 4 12/09/19 25 11:48 AM CDT documented as of this encounter Care Teams Ebd Teacher Relationship Specialty Start Date End Date Demetrius Bull DO [address] [place] [phone] PCP - General Family Practice 01/31/23 documented as of this encounter
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
--- OUTSIDE RECORDS SUMMARY | 2025-02-10 16:46 | XMS_ITS | Encounter Summary ---
Author Organization [facility] Address 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 Gender Identity Not on file Sexual Orientation Not on file documented as of this encounter Plan of Treatment Upcoming Encounters Date Type Department Care Team (Late st Contact Info) Description 03/18/2025 1:20 PM CDT Office Visit [facility] Medicine [place] [address] [place] [phone] Samanta Garcia FNP [address] [place] [phone] documented as of this encounter Visit Diagnoses Diagnosis Abdominal pain, other specified site- Primary documented in this encounter Care Teams Machine Trimmer Relationship Specialty Start Date End Date Demetrius Bull DO [address] [place] [address] [phone] PCP - General Family Practice 01/31/23 documented as of this encounter
--- OUTSIDE RECORDS SUMMARY | 2025-02-10 16:46 | XMS_ITS | Clinical Summary ---
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 PM CDT) [facility] FERRITIN 11(L) 16 - 288 ng/mL [facility] Comment: Test Performed at: [facility] [address] Randolph Padilla MD Blood 11/12/2024 1:54 PM CDT 11/12/2024 1:55 PM CDT Samanta HAGERP CHEMISTRY ORDERABLES Final Re sult Performing Organization Address [facility] Co de Phone Number [facility] [phone] [address] * COLON CANCER SCREEN, STOOL DNA (08/27/2022 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) [facility] COLOGUARD RESULT Negative Negative [facility] Comment: NEGATIVE TEST RESULT. A negative Cologuard result indicates a low likelihood that a colorectal cancer (CRC) or advanced adenoma (adenomatous polyps with more advanced pre-malignant features) is present. The chance that a person with a negative Cologuard test has a colorectal cancer is less than 1 in 1500 (negative predictive value >99.9%) or has an advanced adenoma is less than 5.3% (negative predictive value 94.7%). These data are based on a prospective cross-sectional study of 10,000 individuals at average risk for colorectal cancer who were screened with both Cologuard and colonoscopy. (Santana Martinez, N Engl J Med 2014;370(14):1335-9655) The normal value (reference range) for this assay is negative. COLOGUARD RE-SCREENING RECOMMENDATION: Periodic colorectal cancer screening is an important part of preventive healthcare for asymptomatic individuals at average risk for colorectal cancer. Following a negative Cologuard result, the [place] Cancer Society and U.S. Multi-Society Task Force screening guidelines recommend a Cologuard re-screening interval of 3 years. References: [place] Cancer Society Guideline for Colorectal Cancer Screening: https://www.cancer.org/cancer/isfll-phmrpd-marqqt/mzfuynobt-iezrvdhhp-lfkijnd/ac s-rec ommendations.html.; Rick DK, Rafat OLVERA, Yi GriffithK, Colorectal Cancer Screening: Recommendations for Physicians and Patients from the U.S. Multi-Society Task Force on Colorectal Cancer Screening , Am J Gastroenterology 2017; 112:6981-4311. TEST DESCRIPTION: Composite algorithmic analysis of stool DNA-biomarkers with hemoglobin immunoassay. Quantitative values of individual biomarkers are not reportable and are not associated with individual biomarker result reference ranges. Cologuard is intended for colorectal cancer screening of adults of either sex, 45 years or older, who are at average-risk for colorectal cancer (CRC). Cologuard has been approved for use by the U.S. FDA. The performance of Cologuard was established in a cross sectional study of average-risk adults aged 50-84. Cologuard performance in patients ages 45 to 49 years was estimated by sub-group analysis of near-age groups. Colonoscopies performed for a positive result may find as the most clinically significant lesion: colorectal cancer [4.0%], advanced adenoma (including sessile serrated polyps greater than or equal to 1cm diameter) [20%] or non- advanced adenoma [31%]; or no colorectal neoplasia [45%]. These estimates are derived from a prospective cross-sectional screening study of 10,000 individuals at average risk for colorectal cancer who were screened with both Cologuard and colonoscopy. (Santana Martinez, N Engl J Med 2014;370(14):6055-4315.) Cologuard may produce a false negative or false positive result (no colorectal cancer or precancerous polyp present at colonoscopy follow up). A negative Cologuard test result does not guarantee the absence of CRC or advanced adenoma (pre-cancer). The current Cologuard screening interval is every 3 years. ([place] Cancer Society and U.S. Multi-Society Task Force). Cologuard performance data in a 10,000 patient pivotal study using colonoscopy as the reference method can be accessed at the following location: www.[employer]/results. Additional description of the Cologuard test process, warnings and precautions can be found at www.cologuard.com. Stool STOOL SPECIMEN / Unknown 08/27/2022 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 08/28/2022 11:41 PM CDL A DRIVER us Marcela Martini INSPECTOR MATERIAL DISPOSITION BODY FLUIDS AND STOOLS Final Res ult [facility] CLIA # [id number] [address] , [address] [place] [address] from Last 3 Months or Most Recently Relevant to Health Maintenance Insurance [address] [place] [id number] MEDICAID [place] MEDICARE PART A AND B Advance Directives For more information, please contact: [phone] * Full Code (Latest Code Status on File) Date Activated Date Inactivated Comments 12/08/2024 12:23 PM 01/05/2025 4:16 PM Care Teams Sushi Chef Relationship Specialty Start Date End Date Demetrius Bull DO [address] [place] [address] PCP - General Family Practice 01/31/23
--- OUTSIDE RECORDS SUMMARY | 2025-02-10 16:46 | XMS_ITS | Encounter Summary ---
Author Organization [facility] Address [address] [place] [address] Care Team Providers Care Diet Attendant Name Role Phone Demetrius Bull DO Primary Care Provider [phone] Encounter Details Date Type Department Care Team (Latest Contact Info) Description 01/15/2000 Outpatient Historical [facility] WASH Horacio Bal MD [address] [facility] [place] [address] Abdominal pain, unspecified site (Primary Dx) Social History Tobacco Use Types Packs/Day Years Used Date Smoking Tobacco: Never Assessed Comments Unknown Sex and Gender Information Value Date Recorded Sex Assigned at Not on file 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 Gender Identity Not on file Sexual Orientation Not on file documented as of this encounter Plan of Treatment Upcoming Encounters Date Type Department Care Team (Late st Contact Info) Description 03/18/2025 1:20 PM CDT Office Visit [facility] Medicine [place] [address] [place] [phone] Samanta Garcia FNP [address] [place] [phone] documented as of this encounter Visit Diagnoses Diagnosis Abdominal pain, unspecified site- Primary documented in this encounter Care Teams Diet Attendant Relationship Specialty Start Date End Date Demetrius Bull DO [address] [place] [phone] PCP - General Family Practice 01/31/23 documented as of this encounter
--- OUTSIDE RECORDS SUMMARY | 2025-02-10 16:46 | XMS_ITS | Encounter Summary ---
Author Organization [facility] Address [address] [place] [address] Care Team Providers Care Fine Arts Instructor Name Role Phone Demetrius Bull DO Primary Care Provider [phone] Reason for Referral * Eval and Treat (Routine) - Closed Specialty Diagnoses / Procedures Referred By Mariel garcia Referred To Contact Orthopedic Surgery Diagnoses Bilateral carpal tunnel syndrome Procedures [place] OFFICE/OUTPATIENT ESTABLISHED MOD MDM 30 MIN [place] OFFICE/OUTPATIENT NEW MODERATE MDM 45 MINUTES Demetrius Bull DO [address] [place] [phone] Phone: tel: fax: [address] [address] Phone: tel: fax: Referral ID Status Reason Start Date Expiration Date Visits Re quested Visits Authorized [id number] Closed 01/06/2025 01/06/2026 1 1 Reason for Visit * Reason Comments Nurse Navigation Encounter Details Date Type Department Care Team (Late st Contact Info) Description 01/06/2025 Telephone [facility] Medicine [place] [address] [place] [phone] Demetrius Bull DO [address] [place] [phone] Nurse Navigation Social History Tobacco Use Types Packs/Day Years [...] on file 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 * Telephone Encounter - Raysa Santiago LPN - 01/06/2025 1:35 PM CDT 01/06/2025 1:35 PM Returned call and spoke with Jarrod on PHI. Discussed Dr. Mathur message and states that patient was not referred and would like referral to go to [facility] and to put his telephone number because the patient don't usually answer hers. Raysa HORTON * Telephone Encounter - Demetrius Bull DO - 01/06/2025 12:32 PM CDT EMG from [facility] [employer] shows bilateral carpal tunnel. Was recommended to have referral to orthopedics. If she did not receive a referral to [facility] for orthopedic referral, please placereferral to [facility] or [facility], which ever she would choose. * Telephone Encounter - Raysa Santiago LPN - 01/06/2025 10:01 AM CDT 01/06/2025 10:01 AM Returned call and spoke with Jarrod on PHI. Discussed that hospital was discharging the patient but hedoesn't know what they have done for her. Jarrod states that he called the social sciences instructor Sheeba and she was going to contact the hospital and get back with him. Jarrod states that [place] states that patient is unable to live alone. Jarrod is also wondering about patients EMG results and would like the provider to look at them. Raysa HORTON * Telephone Encounter - Adrienne Ba - 01/06/2025 8:30 AM CDT Copied from [facility] #[id number]. Topic: Patient or Caregiver Communication Request >> Jan 06, 2025 8:28 AM Adrienne Griggs wrote: Patient or Caregiver requesting that a message be sent to Care Team Caller: Ed - Brother Patient/Caregiver Callback Number: [phone] Call Notes: Called stating pt is currently in the ED and they want to DC her and brother is asking if nurse can call up there and find out what is going on with her documented in this encounter Plan of Treatment Upcoming Encounters Date Type Department Care Team (Late st Contact Info) Description 03/18/2025 1:20 PM CDT Office Visit [facility] [address] [place] [phone] Samanta Garcia, BUILDING INSULATION INSTALLER [address] [place] [phone] Scheduled Referrals Name Type Priority Associated Diagnoses Order Schedule AMB REFERRAL TO ORTHOPEDIC SURGERY Outpatient Referral Routine Bilateral carpal tunnel syndrome Ordered: 01/06/2025 documented as of this encounter Visit Diagnoses Diagnosis Bilateral carpal tunnel syndrome- Primary Carpal tunnel syndrome documented in this encounter Additional Health Concerns Assessment Noted Time PHQ-9 Depression Total Score: 4 12/09/19 25 11:48 AM CDT documented as of this encounter Care Teams Fine Arts Instructor Relationship Specialty Start Date End Date Demetrius Bull DO [address] [place] [phone] PCP - General Family Practice 01/31/23 documented as of this encounter
--- OUTSIDE RECORDS SUMMARY | 2025-02-10 16:46 | XMS_ITS | Encounter Summary ---
Author Organization [facility] Address [address] [place] [address] Care Team Providers Care Assistant Technician Name Role Phone Demetrius Bull Primary Care Provider [phone] Reason for Visit * Reason Onset Date Comments Results 01/04/2025 Encounter Details Date Type Department Care Team (Latest Contact Info) Description 01/04/2025 Results Follow-Up [facility] Medicine [place] [address] [phone] Samanta Garcia, [facility] [address] [phone] POC URINALYSIS DIPSTICK NON AUTOMATED, URINE CULTURE, CBC WITH DIFFERENTIAL, COMPREHENSIVE METABOLIC PANEL Social History Tobacco Use Types Packs/Day Years [...] on file 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 States she can't even get OOB. Brother calling to see if she needs to be admitted in the hospital? Haley HORTON documented in this encounter Plan of Treatment Upcoming Encounters Date Type Department Care Team (Late st Contact Info) Description 03/18/2025 1:20 PM CDT Office Visit [facility] [address] [place] [phone] Samanta Garcia, [facility] [address] [place] [phone] documented as of this encounter Visit Diagnoses Not on filedocumented in this encounter Additional Health Concerns Assessment Noted Time PHQ-9 Depression Total Score: 4 12/09/19 25 11:48 AM CDT documented as of this encounter Care Teams Assistant Technician Relationship Specialty Start Date End Date Demetrius Bull DO [address] [place] [phone] PCP - General Family Practice 01/31/23 documented as of this encounter
--- OUTSIDE RECORDS SUMMARY | 2025-02-10 16:46 | XMS_ITS | Encounter Summary ---
Author Organization [facility] Address 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 Tisha * Telephone Encounter - Catina Kamara - 01/05/2025 1:14 PM CDT Copied from [facility] #[id number]. Topic: Patient or Caregiver Communication Request >> Jan 05, 2025 1:13 PM Catina Wisdom wrote: Patient or Caregiver requesting that a message be sent to Care Team Caller: allan Patient/Caregiver Callback Number: [phone] Call Notes: patient is shaking more than usual and would like advice on what to do documented in this encounter Plan of Treatment Upcoming Encounters Date Type Department Care Team (Late st Contact Info) Description 03/18/2025 1:20 PM CDT Office Visit [facility] [address] [place] [phone] Samanta Garcia FNP [address] [place] [phone] documented as of this encounter Visit Diagnoses Not on filedocumented in this encounter Additional Health Concerns Assessment Noted Time PHQ-9 Depression Total Score: 4 12/09/19 25 11:48 AM CDT documented as of this encounter Care Teams Hotel Reservation Agent Relationship Specialty Start Date End Date Demetrius Bull DO [address] [place] [phone] PCP - General Family Practice 01/31/23 documented as of this encounter
--- OUTSIDE RECORDS SUMMARY | 2025-02-10 16:46 | XMS_ITS | Encounter Summary ---
Author Organization [facility] Address 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'[employer] MINISTRI[employer] DIRECTOR Gender Identity Not on file Sexual Orientation Not on file documented as of this encounter Plan of Treatment Upcoming Encounters Date Type Department Care Team (Late st Contact Info) Description 03/18/2025 1:20 PM CDT Office Visit [facility] Medicine [place] [address] [place] [phone] Samanta Garcia FNP [address] [place] [phone] documented as of this encounter Visit Diagnoses Not on filedocumented in this encounter Care Teams Hotel Operations Manager Relationship Specialty Start Date End Date Demetrius Bull DO [address] [place] [phone] PCP - General Family Practice 01/31/23 documented as of this encounter
--- OUTSIDE RECORDS SUMMARY | 2025-02-10 16:46 | XMS_ITS | Encounter Summary ---
Author Organization [facility] Address [address] [place] [address] Care Team Providers Care Resident Care Assistant Name Role Phone Demetrius Bull DO Primary Care Provider [phone] Reason for Visit * Reason Comments Clinical Consult Before Scheduling Encounter Details Date Type Department Care Team (Late st Contact Info) Description 02/10/[address] 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 Jarrod reports patient had carpal tunnel surgery and believesshe may have hit her hand somehow. Reports patient is bleeding through the bandage and he is requesting to come to clinic to have assessed. Advised to take patient to ER to have wound assessed in case of re injury. Voiced understanding. Haley HORTON * Telephone Encounter - Brie Griffin LPN - 02/10/2025 2:54 PM CDT Copied from [facility] #[id number]. Topic: Symptomatic Care >> Feb 10, 2025 2:51 PM Nurse Brie Griggs wrote: Has this patient seen any provider (current or former) at the requested clinic in the past? Yes, Select the appropriate age range and symptom Patient has symptoms and is seeking care. Caller Name: Jarrod - brother Callback Number: [phone] Call Notes: Pt had wrist surgery this morning Bleeding through bandage Can not reach surgeon Age Range/Symptom: Adult 18+ - Transferred to [facility] Ben answered call. documented in this encounter Plan of Treatment Upcoming Encounters Date Type Department Care Team (Late st Contact Info) Description 03/18/2025 1:20 PM CDT Office Visit [facility] [address] [place] [phone] Samanta Garcia, ABALONE DIVER [address] [place] [phone] documented as of this encounter Visit Diagnoses Not on filedocumented in this encounter Additional Health Concerns Assessment Noted Time PHQ-9 Depression Total Score: 4 12/09/19 25 11:48 AM CDT documented as of this encounter Care Teams Resident Care Assistant Relationship Specialty Start Date End Date Demetrius Bull DO [address] [place] [phone] PCP - General Family Practice 01/31/23 documented as of this encounter
--- NOTE | 2025-02-10 17:01 | ED_ITS ---
HPI - Extremity Problem General: Chief complaint: Extremity Injury, Upper Stated complaint: Surgical site Bleeding Time Seen by Provider: 02/10/25 16:47 Source: patient and EMS Mode of arrival: EMS Limitations: no limitations History of Present Illness: 69-year-old female who had wrist surgery today on her right wrist states that started having some bleeding this evening. Did undress the wound there is no bleeding at this time. No fever no pain. Associated symptoms: Deny chest pain, fever(s) or rash Related Data Home Medications ?Medication ?Instructions ?Recorded ?Confirmed pantoprazole 40 mg tablet,delayed 40 mg PO DAILY 01/1502/10/25 release oxybutynin chloride 15 mg 15 mg PO DAILY 01/02/2404/29 tablet,extended release 24 hr Previous Rx's ?Medication ?Instructions ?Recorded quetiapine 100 mg tablet 100 mg PO BEDTIME 30 days #3 0 tabs 05/04/24 escitalopram oxalate 5 mg tablet 5 mg PO DAILY #30 tab s 01/21/25 (Lexapro) hydrocodone 5 mg-acetaminophen 325 1 tab PO Q6H PRN pa in #20 tabs 02/10/25 mg tablet Allergies Allergy/AdvReac Type Severity Reaction Status Date / Time No Known Allergies Allergy Verified 02/10/25 16:46 Review of Systems Const: Denies: fever(s), chills, body aches or change in appetite ENMT: Denies: throat pain or dental pain Card: Denies: chest pain Resp: Denies: dyspnea GI: Denies: abdominal pain, nausea, vomiting or diarrhea Musc: Denies: neck pain or back pain Skin/Breast: Denies: rash Neuro: Denies: headache(s) PFSH ED PFSH: Medical History On combination antipsychotic drug therapy Psychiatric care Schizophrenia Mood disorder Intellectual disability Surgical History S/P cholecystectomy Family History Brother CAD (coronary artery disease) Myocardial infarction FH: CABG (coronary artery bypass surgery) Denies family history of Diabetes Stroke Social History Smoking and tobacco/nicotine status: current every day tobacco/nicotine user cigarettes Packs smoked per day: 2 Years cigarettes smoked: 45 Quit status (tobacco/nicotine): considering quitting Second hand smoke exposure: Yes Alcohol intake: never Substance/Drug Use: never Adopted: Yes Caregiver/support person: Yes Lives independently: No Household members: none Housing: Apartment Marital status: / Number of children: 3 Number of grandchildren: 6 Highest education level completed: Some College, No Degree service: No Current occupational status: retired Pets and animals: No Leisure activites: other Leisure activities details: watch TV, eat ice cream, go outside Sexually active: No Do you think of yourself as: Straight/Heterosexual Current gender identity: Female Noemi/Yarsanism: Lutheran Special noemi needs: No Agree to transfusion: Yes Physical Exam Const: COMMON NORMALS: no acute distress, patient oriented x3 and healthy appearing HENMT: COMMON NORMALS: normocephalic and atraumatic HEAD & SCALP: normocephalic and atraumatic Eye: COMMON NORMALS: conjunctivae normal CONJUNCTIVA: Yes conjunctivae normal Neck/C-Spine: COMMON NORMALS: full ROM and supple Chest: COMMONS NORMALS: normal inspection of the chest Resp: COMMON NORMALS: normal respiratory effort Cardio: COMMON NORMALS: regular rate, regular rhythm and No murmurs present (Cardio) RATE: regular rate RHYTHM: regular rhythm Extremity: NARRATIVE EXTREMITY EXAM: Incision to right wrist is clean dry and intact no active bleeding Neuro: COMMON NORMALS: patient oriented x3, moves all extremities and no focal motor deficits Psych: COMMON NORMALS: mental status grossly normal, Normal thought process present and cooperative THOUGHT PROCESS: Normal thought process present Skin: COMMON NORMALS: no rashes or lesions noted and no wounds GENERAL SKIN EXAM: no rashes or lesions noted Course Vital Signs: Vital signs: Vital Signs Temperature 97.4 F L 02/10/25 16:38 Pulse Rate 67 02/10/25 16:38 Respiratory Rate 16 02/10/25 16:38 Blood Pressure 127/61 02/10/25 16:38 Pulse Oximetry 92 02/10/25 16:38 MDM - Extremity (Nontraumatic) Medical Decision Making Patient presents here with bleeding from a wound on her right wrist here the bleeding has since stopped wounds clean dry and intact well-appearing she stable for discharge follow-up with her PCP return if worsening. Medical Records I reviewed the patient's medical records. No radiology studies performed this visit Discharge Plan Discharge Patient Disposition: Home Clinical Impression: Visit for wound check Condition: Stable Prescriptions: No Action pantoprazole 40 mg tablet,delayed release (DR/EC) 40 mg PO DAILY oxybutynin chloride 15 mg tablet extended release 24hr 15 mg PO DAILY quetiapine 100 mg tablet 100 mg PO BEDTIME 30 Days Qty: 30 5RF escitalopram oxalate [Lexapro] 5 mg tablet 5 mg PO DAILY Qty: 30 3RF hydrocodone-acetaminophen 5-325 mg tablet 1 tab PO Q6H PRN (Reason: pain) Qty: 20 0RF Discharge Orders: Discharge ED (Routine); Ordered 02/10/25 Ordered By: Manpreet Soto Referrals: Traci Galvez MD [Primary Care Provider, Family Practice] Discharge Diet: Advance as tolerated Discharge Activity: Resume usual activity Patient Instructions: Acute Wound Care (ED) Print Language: Romansh Coding Level of Care Code ED Cap[employer] Press Operator for Arlen Marion
== END 2025-02-10 18:33 | disposition home or self-care (01) ==
PROVIDERS: Emergency Provider Emergency Medicine; PCP Family Medicine
DX: Z48.01 Encounter for change or removal of surgical wound dressing (principal); F17.210 Nicotine dependence, cigarettes, uncomplicated
CPT/HCPCS: 99281

== ENCOUNTER → 2025-02-19 10:09 | Outpatient (BNVA) | payer MEDICARE, MEDICAID, SELFPAY ==
[2025-01-28 13:39] VITALS: BP 137/62; BMI 19.5
== END ==
PROVIDERS: PCP Family Medicine; Visit Provider Orthopaedic Surgery
DX: Z98.890 Other specified postprocedural states (principal)
CPT/HCPCS: 99024

== ENCOUNTER → 2025-03-19 07:50 | Outpatient (BNVA) | payer MEDICARE, MEDICAID, SELFPAY ==
[2025-01-28 13:39] VITALS: BP 137/62; BMI 19.5
== END ==
PROVIDERS: PCP Family Medicine; Visit Provider Orthopaedic Surgery
DX: M79.641 Pain in right hand (principal); M79.642 Pain in left hand
CPT/HCPCS: 99024

== ENCOUNTER → 2025-05-06 14:03 | Outpatient (BNVA) | payer MEDICARE, MEDICAID, SELFPAY ==
[2025-01-28 13:39] VITALS: BP 137/62; BMI 19.5
== END ==
PROVIDERS: PCP Family Medicine; Visit Provider Nurse Practitioner
DX: M19.011 Primary osteoarthritis, right shoulder (principal); M25.711 Osteophyte, right shoulder
CPT/HCPCS: 73030